=== PATIENT | male | born 1960 | race African-American/Black ===

== ENCOUNTER 2019-05-16 07:59 | Inpatient (IN) | payer MEDICAID, OTHER ==
[~2019-05-16] VITALS: Ht 170.2 cm; Wt 104.3 kg
[2019-05-20] MEDS ORDERED: DIPHENHYDRAMINE50 M1 PO (06:27)
[2019-05-20] MEDS ORDERED: MOBIC15 MG PO (06:27)
[2019-05-20] MEDS ORDERED: GLUCOPHAGE1000 MG PO (06:28)
[2019-05-20] MEDS ORDERED: TOPROL XL50 MG PO (06:28)
[2019-05-20] MEDS ORDERED: LANTUS100 UNITS/ SUB-Q (06:29)
[2019-05-20] MEDS ORDERED: AMLODIPINE BESY10 MG PO (06:30)
[2019-05-20] MEDS ORDERED: ASPIR 8181 MG PO (06:30)
[2019-05-20] MEDS ORDERED: REMERON30 MG PO (06:31)
--- NOTE | 2019-05-20 07:42 | NUR ---
0600) BLOOD SUGAR 96 THIS AM. PATIENT LAST TOOK LANTUS LAST NIGHT. DENIES USING SLIDDING SCALE AT ALL.
--- NOTE | 2019-05-20 09:29 | NUR ---
[facility]IVED IN PACU NON RESPONSIVE TO VERBAL/TACTILE STIMULI WITH ORAL AIRWAY IN PLACE. CHIN LIFT HELD. CORRECTIONAL OFFICERS X2 AT BEDSIDE. 0925 PT REACTIVE. ORAL AIRWAY IN PLACE.
--- NOTE | 2019-05-20 10:17 | NUR ---
PT TO FLOOR TO ROOM 114. RECIEVED BEDSIDE REPORT FROM BHAVANI SIMMONS AT 1002. PT AWAKE, DROWSY. VSS. 2 EOCI GAANDRZEJDS AT PT'S BEDSIDE. PT IN UPPER EXTREMITY RESTRAINTS, LOWER EXTREMITY RESTRAINTS. RIGHT KNEE COVERED IN DRESSING, ALEXIS WRAP C/D/I. PT RATES PAIN TO RIGHT KNEE 06/28.
--- NOTE | 2019-05-20 10:32 | NUR ---
PT REPORTED 8/10 RIGHT KNEE PAIN. GAVE DILAUDID 1 MG IV PRN. PT EATING JELLO, TOLERATING WELL AT THIS TIME.
--- NOTE | 2019-05-20 12:05 | NUR ---
PT SITTING UP IN BED, AWAKE, ALERT. VSS. PT REPORTS PAIN IS WELL CONTROLLED AT THIS TIME. PT TOLERATED CLEAR LIQUIDS, TOLERATED SOFT FOODS, ADVANCED TO REGULAR TEXTURE DIET.
[2019-05-20] MEDS ORDERED: ARNUITY ELLIP100 MCG INH (13:08)
[2019-05-20] MEDS ORDERED: HUMULIN R100 UNIT/1 INJ (13:11)
[2019-05-20] MEDS ORDERED: LASIX40 MG PO (13:12)
[2019-05-20] MEDS ORDERED: VENTOLIN HFA18 GM INH (13:15)
--- NOTE | 2019-05-20 13:17 | NUR ---
MED REC COMPLETE
--- NOTE | 2019-05-20 14:11 | NUR ---
PT RESTING IN BED. GUARDS ARE IN ROOM WITH PT. PT HAS NO NEEDS AT THIS TIME.
--- NOTE | 2019-05-20 14:58 | NUR ---
PT AMBULATED IN HALLWAY WITH ANA, PHYSICAL THERAPIST, WITH DEEPTI AT SIDE, USED FWW, TOLERATED WELL. REPORTED RIGHT KNEE PAIN 8/10 FOLLOWING WALK, GAVE DILAUDID 4 MG PO PRN.
--- NOTE | 2019-05-20 17:26 | NUR ---
PT IN BED, DEEPTI AT BEDSIDE. DRESSING TO RIGHT KNEE C/D/I. CMS TO RLE INTACT. PERSONAL SUPPLIES AND CALL LIGHT IN REACH.
--- NOTE | 2019-05-20 17:33 | NUR ---
PT HAD A RIGHT TOTAL KNEE SURGERY THIS SHIFT, AND CAME TO FLOOR TO ROOM 114 AT 1002. CMS TO RLE HAS BEEN INTACT, AND DRESSING TO RLE C/D/I. PT PARTICIPATED IN PHYSICAL THERAPY, AMBULATED IN HALLS. TOOK IV DILAUDID FOR RIGHT KNEE PAIN WITH GOOD EFFECT. PT ADVANCED TO 60 GM CONSISTANT CARBOHYDRATE DIET, TOLERATING WELL. HAS TAKEN 2 TABS OF DILAUDID 4 MG PO PRN THUS FAR FOR RIGHT KNEE PAIN. PT REPORTS PAIN AT A TOLERABLE LEVEL FOLLOWING SECOND TABLET OF DILAUDID. PT HAS HAD 2 GAURDS AT HIS BEDSIDE THROUGHOUT SHIFT, IS AN EOCI INMATE. HAS UPPER AND LOWER EXTREMITY CORRECTIONS RESTRAINTS ON.
--- NOTE | 2019-05-20 18:43 | NUR ---
PT C/O 7/10 PAIN TO RIGHT KNEE. GAVE DILAUDID 8 MG PO PRN. DRESSING TO RLE C/D/I, CMS TO RLE INTACT.
--- NOTE | 2019-05-20 19:10 | NUR ---
SHIFT REPORT RECEIVED. PATIENT RESTING IN BED. REPORT ADEQUATE PAIN CONTROL. IV FLUIDS INFUSING, SITE WNL. PATIENT DENIES NEEDS. CORRECTIONAL OFFICERS X2 AT BEDSIDE.
--- NOTE | 2019-05-20 21:30 | NUR ---
PATIENT RECEIVED EVENING MEDICATIONS. REPORTS PAIN /, SCHEDULED PAIN MEDS PROVIDED. NO DRAINAGE NOTED UNDER ALEXIS WRAP AND CAST PADDING. MEPILEX IN PLACE. CMS INTACT. ICE PACKS X2. VS STABLE. NO NAUSEA. FRESH ICE WATER PROVIDED. IV FLUSHED WELL, SL. NO OTHER NEEDS AT THIS TIME. CALL LIGHT IN REACH.
--- NOTE | 2019-05-20 23:00 | NUR ---
ABX PROVIDED PER ORDER. PATIENT CONTINUES TO REPORT 7/10 PAIN. PRN OXY PROVIDED. FRESH ICE PACKS APPLIED. POSIIONED KNEE FOR COMFORT. PATIENT DENIES FURTHER NEEDS.
--- NOTE | 2019-05-21 01:52 | NUR ---
PATIENT'S URNAL EMPTIED. HE REPORTS PAIN 5/10, STATES "IT'S PRETTY GOOD". PATIENT ASKING FOR CRACKERS, WHICH WERE PROVIDED TO HIM.
--- NOTE | 2019-05-21 03:30 | NUR ---
PATIENT REQUESTING A SANDWICH, STATES HE IS VERY HUNGRY. [facility] [employer] PROVIDED HIM WITH FOOD OPTIONS. PATIENT DENIED OTHER NEEDS.
--- NOTE | 2019-05-21 05:30 | NUR ---
PATIENT REQUESTING PRN PAIN MEDS FOR PAIN 06/28. PATIENT APPEARS COMFORTABLE IN BED. DESCRIBES PAIN MOSTLY IN HIS THIGH MUSCLE PAIN AND SOME SHARP JOINT PAIN IN THE KNEE. NO DRAINAGE NOTED ON MEPILEX, CAST PADDING AND ALEXIS WRAP IN PLACE. SCDS ON. PATIENT HAS LARGE APPETITE. ASKING FOR SNACKS. ENCOURAGED HIM TO WAIT FOR BREAKFAST. FRESH ICE ON KNEE. IV FLUSHED, WNL. NO FURTHER NEEDS AT THIS TIME.
--- NOTE | 2019-05-21 05:55 | NUR ---
PATIENT SLEPT OFF AND ON THIS SHIFT. REQUESTING SNACKS OFTEN. PRN PAIN MEDS X2. SCHEDULED TYLENOL AND TORADOL. IV SL. PATIENT HAS ADEQUATE INTAKE AND URINE OUTPUT. PATIENT ABLE TO STAND TO BEDSIDE TO USE URNAL. DRESSING ON RIGHT KNEE IS CDI, NO DRAINAGE NOTED. CMS INTACT. ICE PACKS TO AREA. VS STABLE. 2 CORRECTIONAL OFFICERS AT BEDSIDE, 4X RESTRAINTS. SKIN WNL UNDER RESTRAINTS.
--- NOTE | 2019-05-21 07:33 | NUR ---
CLINICALS FAXED TO [facility] [phone]. FAX CONFIRMATION RECEIVED 05/21/19 741AM.
--- NOTE | 2019-05-21 07:34 | NUR ---
0700: BEDSIDE REPORT RECIEVED FROM MONTANA BECKHAM. GUARDS PRESENT IN THE ROOM. PT SLEEPING, CALL VALDEZ WITHIN REACH.
--- NOTE | 2019-05-21 08:01 | NUR ---
PT RESTING IN BED WITH GUARDS PRESENT AND RESTRAINTS IN PLACE. THE PT STATES HIS PAIN IS A 5/10 WHICH IS ACCEPTABLE TO HIM. RIGHT KNEE DRESSING CDI WITH GOOD CMS. CALL VALDEZ WITHIN REACH AND THE PT HAS NO OTHER COMPLAINTS.
--- NOTE | 2019-05-21 08:04 | OR ---
[facility] [address] [place], [place] [address] Signed DATE OF OPERATION: 05/20/2019 SURGEON: Bjorn Valdez MD PREOPERATIVE DIAGNOSIS: End-stage osteoarthritis, right knee. POSTOPERATIVE DIAGNOSIS: End-stage osteoarthritis, right knee. PROCEDURE PERFORMED: Right total knee arthroplasty. ANESTHESIA: General. There were no specimens or complications. TOURNIQUET TIME: A little over 80 minutes. WHAT WAS DONE: The patient was taken to the operating room. After anesthesia was induced and airway secured, the patient was positioned, prepped and draped in a routine sterile fashion. The leg was exsanguinated with an Esmarch bandage. Pneumatic tourniquet about the thigh was inflated to 300 mmHg pressure. A straight anterior approach was made to the knee through skin and subcutaneous tissue. A small medial flap was created and an anteromedial arthrotomy performed. The patella was everted, about 10.5 mm were trimmed off the back of the patella, and drill holes were made for a 38 mm all-poly patellar button. The patella was then slid into the lateral recess. We then placed the Pollenizer navigation system on the distal femur and digitized the distal femur in accordance with the protocol. We then resected the distal femur in neutral varus-valgus, 3 degrees of flexion, and removing about 11 mm off the medial side. We then excised distally and removed the distal wafers. We then transitioned the navigation system to the proximal tibia. Again, following the pumps, we digitized the proximal tibia and then resected the proximal tibia in neutral varus-valgus, 3 degrees of posterior slope per the Attune surgical protocol and removing about 8 mm off the medial side. We then removed the tibial wafer along with remnants of the medial and lateral meniscus, ACL, and PCL. We then placed the sizing jig on the distal femur and the femur actually sized to a size 9. Drill holes were placed in 3 degrees of external rotation and the size 9 cutting block Electronically Signed By: BJORN VALDEZ MD 05/21/19 0804 PATIENT NAME: LORI MARTINEZ OPERATIVE REPORT DATE OF : 60 REPORT #: [id number] PHYSICIAN: BJORN VALDEZ MD PCP: CATINA JUNG MD REPORT IS CONFIDENTIAL AND NOT TO BE RELEASED WITHOUT AUTHORIZATION [facility] [address] [place] [id number] Signed was placed on the distal femur. Anterior, posterior and chamfer cuts were made, and the bone fragments were removed along with some remaining marginal osteophytes. We then placed the notch cutting block on the distal femur and cut out the notch for the PS component. We then placed the femoral trial on the distal femur, drilled the holes for the lugs. We then placed a size 8 tibial tray with a 5 mm thick poly spacer in size 9 on the trial tray and reduced the knee. We had full extension, good flexion, and superb flexion-extension balance. We therefore then removed the trials and prepared the tibia with a standard reamer and broach. The knee was copiously irrigated and meticulously dried and the final components were then cemented into place. The knee was held in full extension with a 5 mm trial poly until the cement had cured. Once the cement had cured, we removed the trial poly and sought some additional cementophytes particularly posteriorly medially, which were resected and removed. The knee was copiously irrigated. We trialed a 6 mm poly but it began to compromise our extension. We therefore placed the real 5 mm PS poly on the tibial tray and snapped it into place. Knee was copiously irrigated one last time with Irrisept and was closed in a standard fashion. Sterile dressings were applied. The patient was awakened, taken to recovery room where he arrived in stable condition. Counts were correct and antibiotic protocols were followed. Bjorn Valdez MD WFB/MODL /[id number] Copies: ~ Electronically Signed By: BJORN VALDEZ MD 05/21/19 0804 PATIENT NAME: LORI MARTINEZ OPERATIVE REPORT DATE OF : 60 REPORT #: [id number] PHYSICIAN: BJORN VALDEZ MD PCP: CATINA JUNG MD REPORT IS CONFIDENTIAL AND NOT TO BE RELEASED WITHOUT AUTHORIZATION
--- NOTE | 2019-05-21 08:05 | NUR ---
PATIENT WAS AWAKE, BREAKFAST WAS ORDERED, GUARDS IN THE ROOM.
[2019-05-21] MEDS ORDERED: NORCO 10-325 T1 EACH PO (09:23)
[2019-05-21] MEDS ORDERED: ULTRAM50 MG PO (09:24)
[2019-05-21] MEDS ORDERED: XARELTO10 MG PO (09:25)
--- NOTE | 2019-05-21 10:37 | NUR ---
PT RESTING IN HER CHAIR AND SHE APPEARS IN NO DISTRESS AT THIS TIME.
--- NOTE | 2019-05-21 16:36 | NUR ---
FAXED H&P/DISCHARGE PACKET TO [facility] [phone]. FAX CONFIRMATION RECEIVED 05/21/19 442PM.
== END 2019-05-21 11:20 | disposition home or self-care (01) | DRG 470 ==
LOC: DSVR 05-20 05:44 → MS 05-20 05:44
PROVIDERS: ADMIT Orthopaedic Surgery
PROC: 8E0YXBZ Computer Assisted Procedure of Lower Extremity (ICD-10-PCS; 2019-05-20)
PROC: 0SRC0J9 Replacement of Right Knee Joint with Synthetic Substitute, Cemented, Open Approach (ICD-10-PCS; principal; 2019-05-20 06:45)
DX: M17.11 Unilateral primary osteoarthritis, right knee (principal); I10 Essential (primary) hypertension; E11.9 Type 2 diabetes mellitus without complications; G47.00 Insomnia, unspecified; J45.20 Mild intermittent asthma, uncomplicated; Z79.1 Long term (current) use of non-steroidal anti-inflammatories (NSAID); Z79.4 Long term (current) use of insulin; Z79.51 Long term (current) use of inhaled steroids; Z79.899 Other long term (current) drug therapy; Z79.82 Long term (current) use of aspirin; Z87.891 Personal history of nicotine dependence
CPT/HCPCS: 01402; 36415; 73560; 80048; 85025; 94640; 94760; 94762; 97110; 97161; C1713; C1776; J0131; J0330; J0690; J1100; J1170; J1815; J1885; J2250; J2274; J2405; J2704; J3010; J7120

== ENCOUNTER 2020-05-08 06:30 | Emergency (ER) | payer OTHER ==
[~2020-05-08] VITALS: Ht 170.2 cm; Wt 99.8 kg
[~2020-05-08 06:30] MED LIST: AMLODIPINE BESY10 MG PO; ARNUITY ELLIP100 MCG INH; ASPIR 8181 MG PO; DIPHENHYDRAMINE50 M1 PO; GLUCOPHAGE1000 MG PO; HUMULIN R100 UNIT/1 INJ; LANTUS100 UNITS/ SUB-Q; LASIX40 MG PO; MOBIC15 MG PO; NORCO 10-325 T1 EACH PO; REMERON30 MG PO; TOPROL XL50 MG PO; ULTRAM50 MG PO; VENTOLIN HFA18 GM INH; XARELTO10 MG PO
[2020-05-08] MEDS ORDERED: CYMBALTA30 MG PO (06:52)
[2020-05-08] MEDS ORDERED: LEXAPRO10 MG PO (06:53)
[2020-05-08] MEDS ORDERED: MIRTAZAPINE45 MG PO (06:54)
[2020-05-08] MEDS ORDERED: LISINOPRIL10 MG PO (07:00)
== END 2020-05-08 09:25 | disposition home or self-care (01) ==
LOC: ED 06:30
DX: T78.3XXA Angioneurotic edema, initial encounter (principal); T44.5X5A Adverse effect of predominantly beta-adrenoreceptor agonists, initial encounter; I10 Essential (primary) hypertension; Z87.891 Personal history of nicotine dependence; Z88.8 Allergy status to other drugs, medicaments and biological substances; Z79.899 Other long term (current) drug therapy; Z79.4 Long term (current) use of insulin
CPT/HCPCS: 96374; 96375; 99284-25; J1200; J2930

== ENCOUNTER 2021-05-03 05:34 | Day surgery (SDC) | payer OTHER ==
[~2021-05-03] VITALS: Ht 170.2 cm; Wt 104.5 kg
[~2021-05-03 05:34] MED LIST changes: +CYMBALTA30 MG PO; +LEXAPRO10 MG PO; +LISINOPRIL10 MG PO; +MIRTAZAPINE45 MG PO
--- NOTE | 2021-05-03 05:49 | NUR ---
[facility]PATH RAPID COVID TEST DONE PER ORDER. COVID TEST COLLECTED FROM BOTH NARES W/O ISSUE. PT TOLERATED WELL.
[2021-05-03] MEDS ORDERED: NORVASC5 MG PO (05:52)
[2021-05-03] MEDS ORDERED: ATORVASTATIN CA40 MG PO (05:53)
[2021-05-03] MEDS ORDERED: BEVESPI AEROS10.7 GM INH (05:54)
[2021-05-03] MEDS ORDERED: CELECOXIB100 MG PO (05:54)
[2021-05-03] MEDS ORDERED: HYDROCHLOROTHIA25 MG PO (05:55)
[2021-05-03] MEDS ORDERED: FAMOTIDINE20 MG PO (05:55)
[2021-05-03] MEDS ORDERED: MELATONIN3 MG PO (05:56)
[2021-05-03] MEDS ORDERED: FLOMAX0.4 MG PO (05:57)
[2021-05-03] MEDS ORDERED: K-TAB ER20 MEQ PO (05:57)
[2021-05-03] MEDS ORDERED: NOVOLIN R100 UNIT/1 INJ (05:58)
[2021-05-03] MEDS ORDERED: LIPITOR20 MG PO (06:17)
--- NOTE | 2021-05-03 08:19 | EKG ---
[facility] [address] [facility] [place], [place] [address] Signed Normal sinus rhythm Normal ECG No previous ECGs available Confirmed by RAFA GRIMM DO ([id number]) on 05/03/2021 8:19:45 AM Electronically Signed By: RAFA GRIMM DO 05/03/21 08 PATIENT NAME: LORI MARTINEZ Electrocardiogram DATE OF : 60 PHYSICIAN: RAFA GRIMM DO REPORT #: [id number] REPORT IS CONFIDENTIAL AND NOT TO BE RELEASED WITHOUT AUTHORIZATION
--- NOTE | 2021-05-03 08:33 | NUR ---
05/03/21 0833 Zuly Arellano 0859 PATIENT ARRIVES TO PACU AWAKE BUT VERY DROWSY. DOES NOT FOLLOW COMMANDS. RESP EVEN, BUT SLIGHTLY LABORED WITH CONTINUOUS LIGHT COUGH.
[2021-05-03] MEDS ORDERED: IBUPROFEN600 MG PO (08:50)
[2021-05-03] MEDS ORDERED: ACETAMINOPHEN500 MG PO (08:51)
[2021-05-03] MEDS ORDERED: HYDROCODON-ACE1 EA10 PO (08:52)
--- NOTE | 2021-05-03 09:27 | NUR ---
0920: PT ARRIVES BACK TO DS RM 10 FROM PACU AWAKE. PT ON 2L VIA NC WITH CONT PULSE OXIMETER LEFT IN PLACE. PT DENIES ANY NAUSEA AND TOLERATES SMALL SIPS OF WATER. PT STATES PAIN IS 3/10 AND COMFORTABLE. EOCI GUARDS AT BEDSDIE WITH CALL LIGHT. PT PROVIDED APPLESAUCE AND DC CRITERIA EXPLAINED.
--- NOTE | 2021-05-03 10:07 | NUR ---
PT CONT TO REST IN BED WITH EOCI GUARDS AT BEDSIDE. PT HAS CONT PULSE OXIMETER IN PLACE WITH EYES CLOSED, CONT ON 2L VIA NC. SATS DECREASE TO 89% AND PT ENCOURAGED TO TAKE DEEP BREATHS. PT FOLLOWS INSTRUCTION AND SATS BUMP TO 92-94%. ICED WATER REFILLED AND SECOND APPLESAUCE PROVIDED. PT ENC TO ALERT GUARDS WITH URGE TO VOID.
--- NOTE | 2021-05-03 10:31 | NUR ---
PT TOLERATES APPLE SAUCE AND WATER WITH NO C/O NAUSEA. PT STATES THAT PAIN IS INCREASING IN SURGICAL SITE AND PROVIDED PO PAIN MEDICINE. ICED WATER REFILLED AT THIS TIME. ENC TO LET RN KNOW OF URGE TO VOID. GUARDS REMAIN AT BEDSIDE.
--- NOTE | 2021-05-03 10:54 | NUR ---
[id number]: PT UP TO BATHROOM WITH RN AND EOCI GUARD ASSIST, DENIES DIZZINESS OR NAUSEA WITH POSITION CHANGE. STEADY GAIT WITH ANKLE RESTRAINTS IN PLACE. PT UNABLE TO VOID AT THIS TIME AND MORE ICED WATER PROVIDED, PLAN TO BLADDER SCAN PT IF SECOND TRIAL IS UNSUCCESSFUL.
--- NOTE | 2021-05-03 11:34 | NUR ---
[id number]: PT ABLE TO VOID 200 MLS YELLOW URINE WITH NO PROBLEMS. PT [facility] SELF [facility]. BHAVANI ROSENTHAL IN TO PRESENT DC PACKET TO PT AND REMOVE IV. PT DOES NOT HAVE ANY FURTHER QUESIONS AND DC VIA WC FROM DS RM 10 WITH GUARDS BACK TO [facility]. 1125: [facility] THAT WILL BE RESUMING CARE OF PT.
--- NOTE | 2021-05-03 14:23 | OR ---
[facility] [address] [place], [place] [address] Signed DATE OF OPERATION: 05/03/2021 SURGEON: Pepe Somers MD PREOPERATIVE DIAGNOSES: 1. Symptomatic non-reducible umbilical hernia. 2. Coincidental diastasis rectus. POSTOPERATIVE DIAGNOSES: 1. Symptomatic non-reducible umbilical hernia. 2. Coincidental diastasis rectus. 3. Incarcerated viscus properitoneal fat. PROCEDURES: Repair of incarcerated umbilical hernia with reduction of properitoneal fat. Implantation of Prolene mesh in properitoneal space. ANESTHESIA: General endotracheal; Cristin Meza CRNA and local 20 mL of 0.25% Marcaine with epinephrine. INDICATION: This 61-year-old black man is a prisoner at [facility] and was referred with concerns regarding "ventral hernia." He was noted to have diastasis rectus as well as a non-reducible umbilical hernia proper. The patient did have COVID disease rather mildly inflicting him approximately in November of 2020 and has recovered fully from it. I have recommended repair of what appears to be a non-reducible symptomatic umbilical hernia. Diastasis rectus does not represent hernia and will not be addressed at this time, but repair of the incarcerated hernia would be appropriate. The risks of bleeding, infection, and of course recurrence were reviewed with him. He understands and wished to proceed. FINDINGS: He had an incarcerated fat, appeared to be primarily properitoneal fat. Reduction of the hernia was accomplished and the fascial defect was noted to be approximately 3 cm. The space in the properitoneal area was freed circumferentially for 4 cm and implantation of a circular piece of Prolene mesh was undertaken and secured with Prolene sutures with Prolene pledgets. The fascia was reapproximated transversely, secured with horizontal mattress Prolene suture with Prolene pledgets as well. He tolerated the procedure well. Electronically Signed By: PEPE SOMERS MD 05/03/21 1423 PATIENT NAME: LORI MARTINEZ OPERATIVE REPORT DATE OF : 60 REPORT #: [id number] PHYSICIAN: PEPE SOMERS MD PCP: CATINA JUNG MD REPORT IS CONFIDENTIAL AND NOT TO BE RELEASED WITHOUT AUTHORIZATION [facility] [address] [place], [place] [address] Signed DESCRIPTION OF PROCEDURE: The patient was brought to the operating room, given a general endotracheal anesthetic. Preoperative antibiotic Ancef was given. Sequential compression device stockings were used. The abdomen was clipped and prepared with a chlorhexidine solution and draped sterilely. Non-reducible hernia at the umbilicus was easily identified. A curvilinear incision was made around the umbilicus to the left side. Dissection carried through the dermis with electrocautery and sharp dissection revealing a non-reducing hernia. The umbilical skin was freed from the overlying protruding soft tissue, which proved to be properitoneal fat. The fascial layer was circumferentially freed from the herniated viscus, which again was properitoneal fat or omental fat, though I did not see a specific defect in the peritoneal sac itself. This was reduced fully. Circumferential development of the properitoneal space was undertaken with blunt electrocautery dissection for a distance of approximately 4 cm. A segment of circular prolene mesh was inserted into the properitoneal space and secured with interrupted 0 Prolene suture with Prolene pledgets. The fascia was then reapproximated transversely with interrupted horizontal mattress sutures also using Prolene pledgets. 20 mL of 0.25% Marcaine with epinephrine was injected locally. Maikel layer was reapproximated with interrupted 2-0 Vicryl and skin closed with running subcuticular 3-0 Vicryl. Steri-Strips were applied as was an Acticoat dressing. The patient tolerated procedure well, was extubated without incident and taken to recovery room in good condition. BLOOD LOSS: Minimal. COUNTS: Sponge, needle, and instrument counts were reported as correct x3. MD BRADLEY Minor/MODL /[id number] cc: Marie Carlson NP Electronically Signed By: PEPE SOMERS MD 05/03/21 1423 PATIENT NAME: LORI MARTINEZ OPERATIVE REPORT DATE OF : 60 REPORT #: [id number] PHYSICIAN: PEPE SOMERS MD PCP: CATINA JUNG MD REPORT IS CONFIDENTIAL AND NOT TO BE RELEASED WITHOUT AUTHORIZATION [facility] [address] [place] [address] Signed Copies: MARIE CARLSON SEISMOGRAPH OPERATOR ~ Electronically Signed By: PEPE SOMERS MD 05/03/21 1423 PATIENT NAME: LORI MARTINEZ OPERATIVE REPORT DATE OF : 60 REPORT #: [id number] PHYSICIAN: PEPE SOMERS MD PCP: CATINA JUNG MD REPORT IS CONFIDENTIAL AND NOT TO BE RELEASED WITHOUT AUTHORIZATION
== END 2021-05-03 11:15 | disposition home or self-care (01) ==
LOC: DS 05:34
PROVIDERS: ATTEND Surgery
PROC: 0WUF0JZ Supplement Abdominal Wall with Synthetic Substitute, Open Approach (ICD-10-PCS; principal; 2021-05-03 07:15)
DX: K42.0 Umbilical hernia with obstruction, without gangrene (principal); M62.08 Separation of muscle (nontraumatic), other site; E66.01 Morbid (severe) obesity due to excess calories; I10 Essential (primary) hypertension; J45.909 Unspecified asthma, uncomplicated; Z86.16 Personal history of COVID-19; Z68.36 Body mass index [BMI] 36.0-36.9, adult
CPT/HCPCS: 00750; 93005; 93010; C1781; C9803; J0330; J0690; J1100; J1170; J1644; J1885; J2001; J2250; J2405; J2704; J3010; J7121; Q9968; U0003